=== PATIENT | male | born 1945 ===

== ENCOUNTER → 2017-12-07 | Outpatient (CLI) | payer MEDICARE ==
--- NOTE | 2017-12-08 08:45 | RADIOLOGY REPORT (SQ) ---
EXAM DESCRIPTION: MRI RT UPPER JOINT WITHOUT COMPLETED DATE/TIME: 12/07/2017 5:52 pm REASON FOR STUDY: PAIN IN RIGHT SHOULDER M25.511 PAIN IN RIGHT SHOULDER COMPARISON: None. TECHNIQUE: Right shoulder images acquired and stored on PACS. Multiplanar imaging to include fat sen sitive sequences such as T1, water sensitive sequences such as FST2/STIR, cartilage sensitive sequenc es such as FSPD/gradient-echo sequences. LIMITATIONS: Mild motion artifact. FINDINGS: BONE MARROW AND CORTEX: No worrisome bone lesions or marrow replacement. No occult fractur es. JOINT OR BURSAL EFFUSION: Trace fluid. GLENO-HUMERAL ARTICULATION: No subluxation or dislocation. No subchondral cysts or significant spurs . ACROMION AND AC JOINT: Mild degenerative hypertrophy and fluid in the joint. Type 2 acromion. No significant spurs. Mild subacromial narrowing. ROTATOR CUFF AND INTERVAL: Full-thickness supraspinatus tear with significant loss of muscle bulk and fatty atrophy. Probable significant retraction, difficult to define the cuff margins. At least par tial tear with atrophy in the infraspinatus. Teres atrophy is also noted. Subscapularis looks relat ively intact, although there may be some tendinosis. Mild cystic changes are also noted in the anter ior humeral head which can be related to overlying cuff disease. LABRUM AND BICEPS LABRAL COMPLEX: Limited assessment. No overt biceps disruption. REMAINDER OF LABRUM AND IGHL : Grossly intact. PERIARTICULAR AND ADJACENT SOFT TISSUES: No masses or abnormal nodes. OTHER: No other significant finding. IMPRESSION: 1. Significant cuff tear with atrophy. Difficult assessment for degree of retraction. TECHNICAL DOCUMENTATION: JOB ID: [id number] [employer]- All Rights Reserved Reading location - IP/workstation name: [email or web address]
== END ==
LOC: RAD 16:34
PROVIDERS: ATTEND Physician Assistant
DX: M25.511 Pain in right shoulder (principal); M75.121 Complete rotator cuff tear or rupture of right shoulder, not specified as traumatic